=== PATIENT | male | born 1975 | race Caucasian/White ===

== ENCOUNTER 2016-06-17 10:51 | Emergency (ER) | payer SELFPAY ==
[~2016-06-17] VITALS: Ht 165.1 cm; Wt 75.0 kg
[2016-06-17 11:03] VITALS: BP 150/101; PULSE 94; RESP 14; TEMP 98.3; O2SAT 99
[2016-06-17 15:21] VITALS: BP 152/98; PULSE 78; RESP 18; TEMP 97.8; O2SAT 99
--- NOTE | 2016-06-17 16:02 | PD ---
HPI Chief Complaint: Psychiatric Symptoms Time Seen by Provider: 15:58 Travel History International Travel<30 days: No Contact w/Intl Traveler<30days: No Traveled to known affect area: No History of Present Illness HPI 40-year-old male to presents to the ED for evaluation of depression, suicidal thoughts and feeling hopeless. Per patient he has a history of depression and he currently lives in [place] and he came here to get some "I am here for vitamin D". Per patient he is living in [place] his whole life but he is also having marital problems for which are causing his depression to worsen. Per patient she's been feeling more depressed and he wanted to come here to get checked. He denies any plan to kill or hurt anybody. He denies any medical problems other than heartburn. Patient denies any chest pain or shortness of breath. Patient denies any hallucinations. Patient does use weed on occassion. No fevers chills or sweats. no Other medical problems. [facility] Social History Alcohol Use: Yes (on occassion) Tobacco Use: Yes Substance Use: Yes (weed) Review of Systems Except as stated in HPI: all other systems reviewed are Neg Physical Exam Narrative GENERAL: SKIN: Warm and dry. HEAD: Atraumatic. Normocephalic. EYES: Pupils equal and round. No scleral icterus. No injection or drainage. ENT: No nasal bleeding or discharge. Mucous membranes pink and moist. NECK: Trachea midline. No JVD. CARDIOVASCULAR: Regular rate and rhythm. RESPIRATORY: No accessory muscle use. Clear to auscultation. Breath sounds equal bilaterally. GASTROINTESTINAL: Abdomen soft, non-tender, nondistended. Hepatic and splenic margins not palpable. MUSCULOSKELETAL: Extremities without clubbing, cyanosis, or edema. No obvious deformities. Full range of motion of the upper and lower extremities bilaterally. 2+ pulses bilaterally. NEUROLOGICAL: Awake and alert. No obvious cranial nerve deficits. Motor grossly within normal limits. Five out of 5 muscle strength in the arms and legs. Normal speech. PSYCHIATRIC: Depressed mood and affect; insight and judgment normal. Data Data Last Documented VS Vital Signs Date Time Temp Pulse Resp B/P Pulse Ox O2 Delivery O2 Flow Rate FiO2 06/17/16 15:21 97.8 78 18 152/98 99 Room Air Orders Diet Regular Basic (06/17/16 Dinner) Drug Screen, Random Urine (06/17/16 15:36) Psych Screen (06/17/16 15:36) MDM Medical Decision Making Medical Screen Exam Complete: Yes Emergency Medical Condition: Yes Medical Record Reviewed: Yes Differential Diagnosis Depression versus suicidal ideation versus anxiety versus adjustment disorder versus mood disorder versus bipolar disorder versus schizophrenia versus paranoid disorder versus psychosis versus substance abuse versus alcohol abuse versus alcohol induced psychosis versus homicidality addition versus cutting versus personality disorder Narrative Course 40-year-old male that presents to the ED for evaluation of depression. Patient was properly examined and was found to have signs and symptoms consistent appears to be depression. No sign of acute medical distress. I do not see any need for labs other than for drug screen. Patient agrees with plan. Patient was medically clear. Okay to be seen by psych. Mental health screening was discussed with the patient. Diagnosis Primary Impression: Depression Qualified Code: F32.0 - Mild single current episode of major depressive disorder Satnam Nuñez Jun 17, 2016 16:02
[2016-06-17] MEDS ORDERED: PRIL20CA9 PO (17:23)
== END 2016-06-17 17:27 | disposition home or self-care (01) ==
LOC: NEPJ 10:51
DX: F32.0 Major depressive disorder, single episode, mild (principal)
CPT/HCPCS: 99284